=== PATIENT | male | born 1990 | race American Indian/Alaskan Native ===

== ENCOUNTER 2018-07-13 06:59 | Emergency (ER) | payer OTHER ==
[2018-07-13 07:10] VITALS: BP 121/38
[2018-07-13 10:37] LABS: Bacteria,Urine 1+ /HPF (Negative); Bilirubin,Urine NEG (Negative); Blood,Urine NEG (Negative); Color,Urine Yellow (Yellow); Mucus,Urine FEW /HPF; Protein,Urine <15 mg/dL mg/dL (Negative); Urobilinogen,Urine < 2.0 mg/dL (<2.0)
--- NOTE | 2018-07-13 10:55 | Emergency Department Report ---
Chief Complaint: Urogenital-Male Stated Complaint: POSS STD Time Seen by Provider: 07/13/18 08:25 - HPI History of Present Illness: This is a 28-year-old male nontoxic, well nourished in appearance, no acute signs of distress presents to the ED with c/o of penile discharge. Patient stated that his female partner told him she has an STD. Patient denies any testicular pain or swelling. Patient denies any penile ulcers or lesions. Patient denies any nausea, vomiting, chest pain, shortness of breathe, fever, chills, headache, back pain, numbness, tingling, stiff neck. Patient denies any urinary symptoms. Patient denies any allergies or PMH. - Exam Vital Signs: Vital Signs 07/13/18 07:07 Temperature 98 F Pulse Rate 72 Respiratory 18 Rate Blood Pressure 121/38 O2 Sat by Pulse 100 Oximetry Physical Exam: My physical exam GENERAL: The patient is a well-developed, well-nourished in no apparent distress. Patient is alert and acting appropriately for age. Alert and oriented 3, no apparent distress, normal gait, atraumatic. : No testicular swelling. No penile rash or discharge noted. No lymphadenopathy. MSE screening note: Focused history and physical exam performed. Due to findings the following was ordered: ED Medical Decision Making - Medical Decision Making This is a 28-year-old male that presents with nonmedical emergency. Patient is stable and was examined by me. UA normal. GC pending. Patient was isntructed to return in 3-5 days for results. Patient is asymptomatic and denies any symptoms. Patient states he just wants to be tested for STD. [employer] has approached patient for a co-pay but patient refused. I will refer the patient [facility]. At time of discharge, the patient does not seem toxic or ill in appearance. No acute signs of distress noted. Patient agrees to discharge treatment plan of care. No further questions noted by the patient. ED Disposition for MSE Clinical Impression: Possible exposure to STD Disposition: MED SCREENING EXAM-LEFT Is pt being admited?: No Does the pt Need Aspirin: No Condition: Stable Instructions: Safe Sex (ED) Additional Instructions: Follow-up with a primary care doctor in 3-5 days or if symptoms worsen and continue return to emergency room as soon as possible. Referrals: [facility] [Other] - 3-5 Days PRIMARY CARE, [Referring] - 3-5 Days HILDA PAEZ MD [Staff Physician] - 3-5 Days [facility] [Outside] - 3-5 Days [facility] [Outside] - 3-5 Days
== END 2018-07-13 10:30 | disposition left against medical advice (07) ==
LOC: ED 06:59
DX: R36.9 Urethral discharge, unspecified (principal)
CPT/HCPCS: 81001; 87591